=== PATIENT | male | born 2000 | race Caucasian/White ===

== ENCOUNTER 2019-02-07 05:49 | Day surgery (SDC) | payer BC, OTHER ==
[~2019-02-07 05:49] MED LIST: Buffered Lidocaine 1% SYRIN* 1 ML/SYRINGE INTRADERM ONE
[2019-02-07] MEDS ORDERED: Famotidine IV* 10 MG/ML 2 ML (20 mg) IV ONE (06:00)
[2019-02-07] MEDS ORDERED: Lactated Ringers 1000 ML Bag* 1,000 ML IV SCH (06:00)
[2019-02-07] MEDS ORDERED: Famotidine IV* 10 MG/ML 2 ML (20 mg) ONE (06:14)
[2019-02-07] MEDS ORDERED: ceFAZolin 2 GM in NS PREMIX(*) 2 GM/100 ML BAG IVPB ONE (06:14)
[2019-02-07] MEDS ORDERED: Buffered Lidocaine 1% SYRIN* 1 ML/SYRINGE INTRADERM ONE (06:14)
[2019-02-07] MEDS ORDERED: Bupivacaine 0.25% SDV PF* 10 ML VIAL INJ ONE (07:01)
[2019-02-07] MEDS ORDERED: Midazolam* 1 MG/ML 5 ML VIAL (5 MG) ONE (07:32)
[2019-02-07] MEDS ORDERED: fentaNYL* 50 MCG/ML 2 ML VIAL (100 MCG VIAL) ONE (07:32)
[2019-02-07] MEDS ORDERED: DiMENhydriNATE IV* 50 MG/ML VIAL ONE (08:45)
[2019-02-07] MEDS ORDERED: Dexamethasone IV* 4 MG/ML 1 ML (4 MG) ONE (08:45)
[2019-02-07] MEDS ORDERED: Ketorolac INJ* 30 MG/ML 1 ML VIAL ONE (08:45)
[2019-02-07] MEDS ORDERED: Lidocaine 2% PF * 5 ML VIAL ONE (08:45)
[2019-02-07] MEDS ORDERED: Ondansetron INJ* 2 MG/ML VIAL ONE (08:45)
[2019-02-07] MEDS ORDERED: Propofol* 10 MG/ML 20 ML BTL ONE (08:45)
[2019-02-07] MEDS ORDERED: Succinylcholine* 20 MG/ML 10 ML VIAL ONE (08:45)
[2019-02-07] MEDS ORDERED: DiMENhydriNATE IV* 50 MG/ML VIAL IV PUSH PRN (08:56)
[2019-02-07] MEDS ORDERED: Naloxone* 0.4 MG/ML 1 ML VIAL IV PRN (08:56)
[2019-02-07] MEDS ORDERED: Acetaminophen TAB* 325 MG PO PRN (08:56)
[2019-02-07] MEDS ORDERED: HYDROmorphone INJ1* 1 MG/ML SYRINGE IV PRN (08:56)
[2019-02-07] MEDS ORDERED: HYDROmorphone INJ1* 1 MG/ML SYRINGE ONE (09:53)
[2019-02-07] MEDS ORDERED: oxyCODONE TAB* 5 MG TAB ONE ×2 (09:53→10:40)
[2019-02-07] MEDS: oxyCODONE TAB* 5 MG TAB PO PRN ×2 (09:54→10:43)
[2019-02-07 10:44] VITALS: BP 121/73
--- NOTE | 2019-02-07 12:02 | OP ---
OPERATIVE REPORT: DATE OF OPERATION: 02/07/19 DATE OF : [birth year] SURGEON: Eliseo Mcdowell MD EXECUTIVE CANDIDATE DEVELOPER: SHAMA Dean An market research assistant was needed for the procedure to aid in positioning of the arm and retraction. ANESTHESIOLOGIST: Dr. Schultz. ANESTHESIA: General. 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 PROCEDURES PERFORMED: 1. Right elbow diagnostic arthroscopy with debridement. 2. Right elbow arthrotomy for excision of multiple loose bodies. INDICATIONS: Estrada is 18, but for years he has had off and on catching and severe pain in the right elbow. He got x-rays and MRI which showed loose bodies in the joint as well as some early osteoarthr itic changes. I told him there is not much we can do about the arthritic changes. I do not see any signs of ligament injury or any evidence for instability, and so I do not think there is much we can do for that, but he definitely has loose bodies and it is possible these are contributing to the deve lopment of arthritic changes in the joint, so I told him we should excise those, both for relief of t he mechanical symptoms as well as try to prevent further damage to the joint. ESTIMATED BLOOD LOSS: 5 mL. COMPLICATIONS: None. FINDINGS: See above and below. DESCRIPTION OF PROCEDURE: Estrada was seen in the preoperative holding area. The correct site, side, and procedure were identified. We came back to the operating room. The arm was prepped and draped i n the usual fashion and a time-out was performed. The patient was positioned supine with the elbow flexed to 90 degrees. The arm was exsanguinated wit h the Esmarch and the tourniquet was inflated to 250 mmHg. I developed standard proximal anteromedial and anterolateral portals. The camera was in the anterome dial portal. The instruments came in through the anterolateral portal. The Portals were developed b y incising the skin with a 15 blade and then bluntly spreading down and penetrating the joint capsule with a snap before introducing the camera and the instruments. Portal placement was uneventful. On ce I had the camera in place, I could easily visualize 2 loose bodies in the anterior joint. This wa s consistent with his preoperative imaging. Since there were no loose bodies identifiable in the pos terior joint, we did not create posterior portals. I went ahead and debrided out the anterior joint line. Once I had everything nice and loose, the 2 loose bodies were easily visible. It was noted th ey were very large. I did bring in a grasper and I attempted multiple times to treat them with the l arge grasper I had, however, I was unable to get a good bite on them because especially one of the tw o was just larger than the grasper, and so ultimately I decided to take it out with an open arthrotom y. After I had finished the arthroscopic debridement, there was nothing further that I could do with the scope. I went went and retrieved all of that, and we brought in a hand table and then appropriately draped that out and then we converted to open portion of the procedure. I went ahead and made a longitudinal incision over the lateral elbow. Dissection was carried down an d full-thickness flaps were raised off the fascia. The bony landmarks of the lateral epicondyle and the radial head were identified. I made an arthrotomy starting at the proximal aspect of the radial head coming anterior to the lateral ulnar collateral ligament and then releasing some of the soft tis rianna off the anterior margin of the lateral supracondylar ridge. This exposed anterior joint line abilio y nicely. I placed an Army-[place] to retract the capsule anteriorly. Immediately seen were the large l oose bodies. These were retrieved with the DeBakey forceps. The large one came out first and then t he other one had moved itself over a little bit more medially and I was able to retrieve that and exc ise as well. I then flushed joint out copiously. I suctioned everything out and made sure there wer e no additional loose bodies. Everything was looking good, so I closed the arthrotomy down with 0 Vi cryl sutures. Subcutaneous tissues were reapproximated with 3-0 Vicryl. Skin was closed with 3-0 Mo nocryl and Steri- Strips. A 0.25% Marcaine was infiltrated all about the area. The proximal medial portal was closed with a nylon stitch. Wounds were dressed and a soft dressing was applied. He was taken to the recovery room in stable condition. [id number]/[facility] #: [id number]
== END 2019-02-07 10:47 | disposition home or self-care (01) ==
LOC: OR 05:49
PROVIDERS: ATTEND Orthopaedic Surgery Hand Surgery
DX: M24.021 Loose body in right elbow (principal); M19.021 Primary osteoarthritis, right elbow
CPT/HCPCS: 88304; 88311; A9270-GY; J0330; J0690; J1100; J1170; J1240; J1885; J2250; J2405; J2704; J3010; J3490

== ENCOUNTER 2019-03-01 20:28 | Emergency (ER) | payer BC ==
--- OUTSIDE RECORDS SUMMARY | 2019-03-01 20:37 | XMS REPORT | Continuity of Care Document ---
:2000 External Reference #:[id number] Author Name Ministerio Adan Care Team Providers Name Role Phone Pavithra Benjamin MD Primary Care Physician Unavailable Payers Date Identification Numbers Payment Provider Subscriber Policy Number: [id number] BS Meghan Tarik Bernardo PayID: [id number] [address] [address] [place] [address] Policy Number: [id number] [place] Bernardo Group Number: [id number] [address] Group Name: Medicaid Tan/[place] [address] PayID: [id number] Family History Date Family Member(s) Observation Comments General No Current Problems Social History Type Date Description Comments Sex Unknown Marital Status Single Lives With Grandmother Lives With Grandfather Occupation [employer] ETOH Use Rarely consumes alcohol Tobacco Use Start: Unknown Patient has never smoked Recreational Drug Use Denies Drug Use Smoking Status Reviewed: 02/18/19 Patient has never smoked Exercise Type/Frequency Does not exercise Allergies, Adverse Reactions, Alerts Description No Known Drug Allergies Medications Active Medications SIG Qnty Indications Ordering Provider Date Aspirin Adult take two tabs as Unknown 325mg needed Tablets History Medications Hydrocodone-Acetaminophen 1 or 2 tabs 30tabs Eliseo 02/07/2019 - 5-325mg Tablets by mouth MD July 02/17/2019 every 6-8 hours as needed for pain Vital Signs Date Vital Result Comment 02/18/2019 2:03pm Height 72 inches 6'0" Weight 165.00 lb Heart Rate 97 /min BP Systolic Sitting 120 mmHg BP Diastolic Sitting 66 mmHg Body Temperature 99.9 F Pain Level 0 O2 % BldC Oximetry 98 % BMI (Body Mass Index) 22.4 kg/m2 Height Percentile 80 % Weight Percentile 64th 02/04/2019 11:20am Height 72 inches 6'0" Weight 165.00 lb Heart Rate 69 /min BP Systolic Sitting 116 mmHg BP Diastolic Sitting 66 mmHg Respiratory Rate 12 /min Body Temperature 99.6 F Pain Level 0 O2 % BldC Oximetry 99 % BMI (Body Mass Index) 22.4 kg/m2 Height Percentile 80 % Weight Percentile 65th 12/10/2018 8:07am Height 72 inches 6'0" Weight 164.00 lb Heart Rate 64 /min BP Systolic Sitting 114 mmHg BP Diastolic Sitting 66 mmHg Respiratory Rate 12 /min Pain Level 0 BMI (Body Mass Index) 22.2 kg/m2 Height Percentile 80 % Weight Percentile 64th 11/25/2018 11:18am Height 72 inches 6'0" Weight 163.00 lb Heart Rate 83 /min BP Systolic Sitting 114 mmHg BP Diastolic Sitting 78 mmHg Respiratory Rate 16 /min Pain Level 0 O2 % BldC Oximetry 98 % BMI (Body Mass Index) 22.1 kg/m2 Height Percentile 80 % Weight Percentile 63rd Results Test Date Facility Test Result H/L Range Note Laboratory test 02/07/2019 [facility] Surgical SEE RESULT [address] [place] [address] [phone] 1 SEE RESULT BELOW Name: TARIK BERNARDO : [address]: Eliseo Mcdowell MD Acct: [id number] Unit: [id number] AGE: 18 Location: OR Re02/07/19 SEX: M [place] [facility] [place]: [id number] JANICE: 02/07/19- [facility] DR: Eliseo Mcdowell MD REQ: [id number] RECD: 02/07/191108 STATUS: SOUT _ ORDERED: Decal, LEVEL 3 FINAL DIAGNOSIS Right elbow, excision: -- Osteocartilaginous loose bodies. PRE-OPERATIVE DIAGNOSIS Loose body in right elbow. GROSS DESCRIPTION The specimen is received in formalin labeled, Right Elbow Loose Bodies, and consists of two zuluaga-white smooth irregular bone fragments measuring 1.0 x 0.9 x 0.5 cm and 1.2 by up to 1.1 x 0.5 cm consistent with loose bodies. Spanish Instructor sections, one cassette following decalcification. Signed by and Reported on: Sven Redd MD 1145 END OF REPORT DEPARTMENT OF PATHOLOGY, [address] [place] [address] Sven Redd M.D. Director [facility] # [id number] Procedures Date Code Description Status 02/07/2019 46055 Arthroscopy Elbow Debridement Limited Completed 02/07/2019 64349 Arthroscopy Elbow Debridement Limited Completed 02/07/2019 78344 Arthrotomy Elbow W/Joint Exploration Completed 02/07/2019 01560 Arthrotomy Elbow W/Joint Exploration Completed 12/10/2018 73189 Rad Exam; Knee Comp Completed Encounters Type Date Location Provider Dx Diagnosis Office Visit 02/04/2019 Orthopedic Eliseo Mcdowell M24.021 Loose body in 11:00a [facility] [place] Office Visit 12/10/2018 Orthopedic Eliseo Mcdowell M24.021 Loose body in 8:00a [facility] [place] M25.561 Pain in right knee Office Visit 11/25/2018 11:00a Orthopedic Gustavo Barrientos M24.021 Loose body in [facility] [place] Plan of Treatment Future Appointment(s):03/04/2019 2:15 pm - Eliseo Mcdowell MD at [facility] [place]
--- OUTSIDE RECORDS SUMMARY | 2019-03-01 20:37 | XMS REPORT | Continuity of Care Document ---
:2000 External Reference #:[id number] Author Name LocoMinisterio chester Care Team Providers Name Role Phone Pavithra Benjamin MD Primary Care Physician Unavailable Payers Date Identification Numbers Payment Provider Subscriber Policy Number: [id number] ILIANA Christianson Estrada Bender PayID: [id number] [address] [address] [place] [address] Policy Number: [id number] [place] Bender PayID: [id number] [address] [place] [address] Family History Date Family Member(s) Observation Comments General No Current Problems Social History Type Date Description Comments Sex Unknown Marital Status Single Lives With Grandmother Lives With Grandfather Occupation [employer] ETOH Use Rarely consumes alcohol Tobacco Use Start: Unknown Patient has never smoked Recreational Drug Use Denies Drug Use Smoking Status Reviewed: 02/04/19 Patient has never smoked Exercise Type/Frequency Does not exercise Allergies, Adverse Reactions, Alerts Description No Known Drug Allergies Medications Active Medications SIG Qnty Indications Ordering Provider Date Aspirin Adult take two tabs as Unknown 325mg needed Tablets Vital Signs Date Vital Result Comment 02/04/2019 11:20am Height 72 inches 6'0" Weight [...] Height Percentile 80 % Weight Percentile 63rd Procedures Date Code Description Status 12/10/2018 43781 Rad Exam; Knee Comp Completed Encounters Type Date Location Provider Dx Diagnosis Office Visit 12/10/2018 Orthopedic Eliseo Mcdowell, M24.021 Loose body in 8:00a [facility] [place] M25.561 Pain in right knee Office Visit 11/25/2018 11:00a Orthopedic Gustavo Barrientos, M24.021 Loose body in [facility] [place] Plan of Treatment Future Appointment(s):02/18/2019 2:00 pm - Eliseo Mcdowell MD at [facility] [place]/15/2019 7:45 am - SHAMA Dean at [facility].MRolo02/07/2019 7:45 am - Eliseo Mcdowell MD at [facility].AAnkita
[2019-03-01 20:41] VITALS: BP 125/63
--- NOTE | 2019-03-01 20:50 | UC ---
General HPI - HPI Summary HPI Summary: per triage, Pt had surgery on R elbow on 02/07 to remove loose bodies and shave down elbow. Hematoma removed from R elbow last week. Pt was told to just keep stretching the elbow by his surgeon but he can't extend elbow and it is painful. [ End ] No fever, redness or warmth. No numbness, tingling or weakness to the hand. Pt's main concern is the ongoing swelling to outer elbow, pain with movement and limited flexion and extension. He did call for another f/u and has an appointment for this coming Thursday. - History of Current Complaint Chief Complaint: UCUpperExtremity Stated Complaint: RT ELBOW PAIN Time Seen by Provider: 03/01/19 20:41 Hx Obtained From: Patient Pain Intensity: 0 Associated Signs & Symptoms: Negative: Fever, Weakness - Allergy/Home Medications Allergies/Adverse Reactions: Allergies Allergy/AdvReac Type Severity Reaction Status Date / Time No Known Allergies Allergy Verified 03/01/19 20:41 Home Medications: Home Medications Acetaminophen [Tylenol] 2 tab PO ONCE 03/01/19 [History Confirmed 03/01/19] PMH/Surg Hx/FS Hx/Imm Hx Previously Healthy: Yes - Surgical History Surgical History: Yes Surgery Procedure, Year, and Place: Tonsillectomy as a child. R elbow sx - Family History Known Family History: Positive: Non-Contributory - Social History Occupation: Disabled - due to this surgery Alcohol Use: None Substance Use Type: None Smoking Status (MU): Never Smoked Tobacco - Immunization History Vaccination Up to Date: Yes Review of Systems All Other Systems Reviewed And Are Negative: No Constitutional: Negative: Fever, Chills Skin: Negative: Rash Musculoskeletal: Positive: Decreased ROM - R elbow, Edema - lateral R elbow Neurological: Negative: Weakness, Paresthesia, Numbness Physical Exam Triage Information Reviewed: Yes Appearance: Well-Appearing Vital Signs: Initial Vital Signs Temp 98.4 F 03/01/19 20:37 Pulse 89 03/01/19 20:37 Resp 16 03/01/19 20:37 BP 125/63 03/01/19 20:37 Pulse Ox 100 03/01/19 20:37 Vital Signs Reviewed: Yes Cardiovascular: Positive: RRR Musculoskeletal: Positive: Other: - RUE: shoulder without deformity or tenderness. elbow: with mild lateral swelling and healed post op scar. medial elbow with healed post op scar and no swelling. no erythema, warmth or adenopathy. pt able to supinate and pronate without limitation but falls short of full passive and active flexion and extension but no crepitations with either. wrist/hand: without swelling and have full s/v/m function. Neurological: Positive: Alert Psychological: Positive: Age Appropriate Behavior Skin Exam: Normal Skin: Negative: Rashes Course/Dx - Differential Dx - Multi-Symptom Differential Diagnoses: Other - no concern for infection. no acute injury thus no xray. no concern for compartment syndrom. no concern for DVT. pt advised to continue stretching the elbow as directed by the orthopedist. will add nsaid. pt advised to ask orthopedic surgeon for a PT referal. pt to keep his f/u as scheduled in 3 days. - Diagnoses Provider Diagnosis: Post-op pain Discharge - Sign-Out/Discharge Documenting (check all that apply): Patient Departure All imaging exams completed and their final reports reviewed: No Studies - Discharge Plan Condition: Stable Disposition: HOME Prescriptions: Naproxen [Naprosyn 500 mg tab] 500 mg PO BID 5 Days #10 tablet Patient Education Materials: Swollen Joint (ED) Referrals: Eliseo Mcdowell MD [Medical Doctor] - Additional Instructions: FOLLOW UP THIS THURSDAY SCHEDULED. CONTINUE THE STRETCHING EXERCISES DIRECTED. ASK YOUR ORTHOPEDIST FOR A PT REFERRAL. - Billing Disposition and Condition Condition: STABLE Disposition: Home
[2019-03-01] MEDS ORDERED: Ibuprofen ADULT LIQ* 600 MG/30 ML UDC PO ONE (21:03)
== END 2019-03-01 21:19 | disposition home or self-care (01) ==
LOC: UCCORT 20:28
DX: G89.18 Other acute postprocedural pain (principal); Z87.39 Personal history of other diseases of the musculoskeletal system and connective tissue; Z98.890 Other specified postprocedural states
CPT/HCPCS: 99212; A9270-GY; G0463